=== PATIENT | female | born 1980 | race Two or more races ===

== ENCOUNTER 2023-02-22 21:38 | Emergency (ER) | payer MEDICAID, OTHER ==
[~2023-02-22] VITALS: Ht 165.1 cm; Wt 81.8 kg
[2023-02-23] MEDS ORDERED: KETOROLAC TROMETH 60MG/2ML VIAL IM ONE (02:00)
[2023-02-23] MEDS ORDERED: CYCL-837 PO (02:01)
[2023-02-23] MEDS ORDERED: IBUP-1456 PO (02:01)
[2023-02-23 02:06] VITALS: BP 136/73
== END 2023-02-23 03:05 | disposition home or self-care (01) ==
LOC: ER 21:44
DX: S46.911A Strain of unspecified muscle, fascia and tendon at shoulder and upper arm level, right arm, initial encounter (principal); S16.1XXA Strain of muscle, fascia and tendon at neck level, initial encounter; X58.XXXA Exposure to other specified factors, initial encounter; Y93.89 Activity, other specified; Y92.89 Other specified places as the place of occurrence of the external cause; Y99.8 Other external cause status
CPT/HCPCS: 96372; 99283; J1885